=== PATIENT | female | born 1995 | race Caucasian/White ===

== ENCOUNTER 2020-10-09 17:43 | Outpatient (CLI) | payer OTHER, SELFPAY | END 2020-10-09 17:44 | disposition home or self-care (01) | LOC: ANHCOVIDVC 17:43 | PROVIDERS: PCP Internal Medicine | DX: Z23 Encounter for immunization (principal) | CPT/HCPCS: 0001A; 91300 ==

== ENCOUNTER 2020-10-30 17:44 | Outpatient (CLI) | payer OTHER, SELFPAY | END 2020-10-30 17:45 | disposition home or self-care (01) | LOC: ANHCOVIDVC 17:44 | PROVIDERS: PCP Internal Medicine | DX: Z23 Encounter for immunization (principal) | CPT/HCPCS: 0002A; 91300 ==

== ENCOUNTER 2022-10-25 17:44 | Emergency (ER) | payer OTHER, SELFPAY ==
[2022-10-25 17:55] VITALS: BP 130/72; PULSE 79; RESP 20; TEMP 36.5; O2SAT 98
--- NOTE | 2022-10-25 17:58 | ED.URI ---
HPI - URI/Sore Throat General Chief Complaint: Upper Respiratory Infection Stated Complaint: Cough/Congestion Time Seen by Provider: 10/25/22 17:45 Source: patient and RN notes reviewed History of Present Illness HPI Narrative: Patient is a 27-year-old female presents to urgent care with complaints of cough, congestion, scratchy throat, runny nose, fatigue and intermittent nausea. Patient states her stepson had strep last week and she is concerned she may also have strep. Patient states that it started a couple days ago was worse last night/early this morning. Patient has been taking ibuprofen and Tylenol for her headache and using Benadryl without much relief. No other acute complaints. No acute distress noted. Patient aware of the plan of care. Some parts of this dictation were generated by voice recognition software and may contain typographical and/or grammatical inaccuracies. Related Data Home Medications Medication Instructions Recorded Confirmed escitalopram oxalate 20 mg tablet mg 10/25/22 hydroxyzine HCl 25 mg tablet mg 10/25/22 sumatriptan succinate 25 mg tablet mg PO 10/25/22 trazodone 50 mg tablet mg 10/25/22 Allergies Allergy/AdvReac Type Severity Reaction Status Date / Time No Known Allergies Allergy Verified 10/25/22 17:57 Review of Systems Review of Systems: CONSTITUTIONAL: Denies fever, chills, or sweats. Reports of fatigue EYES: Denies visual changes, redness, or discharge. ENT: Reports rhinorrhea, congestion, sore throat CARDIOVASCULAR: Denies chest pain, palpitations, or edema. RESPIRATORY: Reports of cough and chest congestion GASTROINTESTINAL: Reports of nausea GENITOURINARY: Denies dysuria or hematuria. SKIN: Denies rash or itching. MUSCULOSKELETAL: Denies back pain, joint pain, or myalgia. NEUROLOGIC: Reports of headache All other systems reviewed are negative, except as documented in HPI. PMFSH Comments At the time of my signature, I reviewed and agree with the nursing past medical, surgical, social, and family history. There is no relevant family history pertinent to the patient complaint. Exam Narrative: GENERAL: This is a well-nourished, well-developed patient, in no apparent distress. HEAD: normocephalic, atraumatic. EYES: PERRL. Sclera clear/white. Vision is grossly intact. EARS: External ears normal, auditory canals clear and without drainage, TMs normal without perforation. Hearing grossly intact. NOSE: External nose normal with no obvious nasal discharge, nares without redness, clear to yellow rhinorrhea. THROAT: Mucous membranes moist, posterior pharynx clear. Moderate postnasal drainage NECK: Neck supple, non-tender without lymphadenopathy RESPIRATORY: Clear to auscultation. Breath sounds equal bilaterally. No wheezes, rales, or rhonchi. GASTROINTESTINAL: Abdomen soft, non-tender, nondistended. Bowel sounds are active. SKIN: warm, intact with no suspicious lesions or rash, good texture and turgor. NEURO: awake, alert, and oriented to person, place and time. There were no obvious focal neurologic abnormalities. EXTREMITIES: No clubbing, cyanosis, or edema. Course Course Level of Care: Express Care Visit Vital Signs Vital signs: Vital Signs Temperature 97.7 F 10/25/22 17:55 Pulse Rate 79 10/25/22 17:55 Respiratory Rate 20 10/25/22 17:55 Blood Pressure 130/72 10/25/22 17:55 Pulse Oximetry 98 10/25/22 17:55 Oxygen Delivery Room Air 10/25/22 17:55 Temperature 97.7 F 10/25/22 17:55 Pulse Rate 79 10/25/22 17:55 Respiratory Rate 20 10/25/22 17:55 Blood Pressure 130/72 10/25/22 17:55 Pulse Oximetry 98 10/25/22 17:55 Oxygen Delivery Room Air 10/25/22 17:55 Reviewed MDM - URI/Sore Throat MDM Narrative Medical decision making narrative: Reviewed lab results with the patient. She is aware that strep swab was negative. Educated patient on culture and we will call within 72 hours if culture is positive antibiot
== END 2022-10-25 18:30 | disposition home or self-care (01) ==
PROVIDERS: Emergency Provider Nurse Practitioner Family; PCP Family Medicine
DX: J02.9 Acute pharyngitis, unspecified (principal); J06.9 Acute upper respiratory infection, unspecified
CPT/HCPCS: 87081; 87880; 99213; G0463

== ENCOUNTER 2023-02-06 16:34 | Emergency (ER) | payer OTHER, SELFPAY ==
[2023-02-06 17:00] VITALS: BP 116/76; PULSE 76; RESP 20; TEMP 36.4; O2SAT 98
--- NOTE | 2023-02-06 17:34 | ED.GENADULT ---
HPI - General Adult General Chief complaint: Upper Respiratory Infection Stated complaint: sore throat,cough Source: patient Mode of arrival: ambulatory Limitations: no limitations History of Present Illness HPI narrative: Patient presents for evaluation of sick symptoms. Symptom onset today. Symptoms include sore throat, sinus congestion, chills and mild nausea. She denies any fever, vomiting, diarrhea, cough, shortness of breath. She smokes 1 pack per day. She also smokes marijuana. She has not tried any medications to assist with her symptoms. Her in all of her children are being evaluated here for similar symptoms. She has had similar symptoms in past with common cold. Related Data Home Medications Medication Instructions Recorded Confirmed escitalopram oxalate 20 mg tablet 20 mg PO DIRECTED 10/25/22 hydroxyzine HCl 25 mg tablet 20 mg PO DIRECTED 10/25/22 sumatriptan succinate 25 mg tablet mg PO 10/25/22 trazodone 50 mg tablet 50 mg PO DIRECTED 10/25/22 Allergies Allergy/AdvReac Type Severity Reaction Status Date / Time No Known Allergies Allergy Verified 02/06/23 17:13 Review of Systems Review of Systems: CONSTITUTIONAL: Reports chills. Denies fever or sweats. EYES: Denies visual changes, redness, or discharge. ENT: Reports sore throat and sinus congestion. Denies rhinorrhea or otalgia. CARDIOVASCULAR: Denies chest pain, palpitations, or edema. RESPIRATORY: Denies cough or dyspnea. GASTROINTESTINAL: Reports nausea. Denies abdominal pain, vomiting, or diarrhea. GENITOURINARY: Denies dysuria or hematuria. SKIN: Denies rash or itching. MUSCULOSKELETAL: Denies back pain, joint pain, or myalgia. NEUROLOGIC: Denies headache, numbness, dizziness, or weakness. PSYCHIATRIC: Denies anxiety or depression. [facility] Past Medical History Medical History (Updated 02/06/23 @ 17:51 by Tra Paiz, TAYLOR, MARTINEZ) Celiac disease Surgical History Surgical History History of History of cholecystectomy History of tubal ligation Family History Family History Mother Family history non-contributory Social History Social History (Updated 02/06/23 @ 17:38 by Tra Paiz, [facility], ) Smoking packs per day: 1 Smoking cigarettes per day: 20.0 Smoking status: Current every day smoker Substance use: current Substance use type: marijuana Living arrangements: with family Gender identity (if verbalized by the patient): Female Sexual Orientation (if Verbalized by the Patient): Straight or Heterosexual Spiritual care concerns: No Exam Narrative: GENERAL: Well-appearing, well-nourished, and in no acute distress. HEAD: Normocephalic, atraumatic. EYES: PERRLA and EOMI. ENT: Nares clear, no rhinorrhea or epistaxis. Mucous membranes moist. Oropharynx without tonsillar hypertrophy exudate or other lesions. Bilateral TMs pearly valentine nonbulging NECK: Supple. No adenopathy or masses. No carotid bruits or JVD CHEST: Clear to auscultation. No respiratory distress. No wheezes rales or rhonchi HEART: Regular rate and rhythm. No murmur heard. Normal peripheral pulses. ABDOMEN: Soft, nontender, nondistended, normal active bowel sounds. EXTREMITIES: Normal range of motion. No edema. SKIN: Warm, dry, no rash. NEURO: No focal deficits. Alert and oriented x3. PSYCH: Normal mood and affect. Course Course Emergency Course: This is a 28-year-old female who presented for evaluation of sick symptoms. Rapid strep negative. Exam consistent with acute viral syndrome. Increase hydration. [id number] agents for symptom management. Follow up with primary provider. Go to the ER for worsening symptoms. Patient in agreement plan of care. Level of Care: Express Care Visit Vital Signs Vital signs: Vital Signs Temperature 36.4 C 02/06/23 17:00 P
== END 2023-02-06 17:58 | disposition home or self-care (01) ==
PROVIDERS: Emergency Provider Nurse Practitioner
DX: B34.9 Viral infection, unspecified (principal); F17.210 Nicotine dependence, cigarettes, uncomplicated; F12.90 Cannabis use, unspecified, uncomplicated; K90.0 Celiac disease
CPT/HCPCS: 87081; 87880; 99213; G0463